=== PATIENT | male | born 1975 | race Two or more races ===

== ENCOUNTER 2022-02-14 13:49 | Emergency (ER) | payer MEDICAID ==
[~2022-02-14] VITALS: Ht 175.3 cm; Wt 101.9 kg
[2022-02-14 15:21] VITALS: BP 157/95
[2022-02-14] MEDS ORDERED: IBUP800T26 PO (15:34)
[2022-02-14] MEDS ORDERED: HYDR-4902 PO (15:34)
[2022-02-14] MEDS ORDERED: TAM04C PO (15:34)
== END 2022-02-14 16:10 | disposition home or self-care (01) ==
LOC: ER 13:49
DX: N20.0 Calculus of kidney (principal)